=== PATIENT | female | born 1995 | race Two or more races ===

== ENCOUNTER 2022-09-03 03:01 | Emergency (ER) | payer OTHER ==
[~2022-09-03] VITALS: Ht 162.6 cm; Wt 65.8 kg
[2022-09-03 03:12] VITALS: BP 133/84
[2022-09-03] MEDS ORDERED: HYDR-3972 PO ×2 (03:22→03:27)
== END 2022-09-03 03:32 | disposition home or self-care (01) ==
LOC: ER 03:03
DX: K08.89 Other specified disorders of teeth and supporting structures (principal); Z76.0 Encounter for issue of repeat prescription